=== PATIENT | female | born 1935 | race Caucasian/White ===

== ENCOUNTER 2020-11-18 17:39 | Inpatient (IN) | payer MEDICARE, OTHER ==
[~2020-11-18] VITALS: Ht 165.1 cm; Wt 57.2 kg
[~2020-11-18 17:39] MED LIST: ANASTROZOLE1 MG PO; METOPROLOL TART25 MG PO; NOVOLOG MI100 UNIT/1; WARFARIN SODIUM3 MG PO
[2020-11-18 18:23] LABS: BASOPHILS # (AUTO) 0.1 (0.0-0.1); BASOPHILS % 0.4 % (0.0-1.0); EOSINOPHILS # (AUTO) 0.3 (0.0-0.4); EOSINOPHILS % 2.5 % (0.0-6.0); HEMATOCRIT 29.6 % (34.2-44.1); LYMPHOCYTES # (AUTO) 1.9 (1.0-3.2); LYMPHOCYTES % 16.8 % (18.0-39.1); MEAN CORPUSCULAR HEMOGLOBIN 29.4 pg (28-32); MEAN CORPUSCULAR HGB CONC 30.4 g/dL (31-35); MEAN CORPUSCULAR VOLUME 96.7 fL (81-99); MONOCYTES # (AUTO) 0.7 (0.2-0.8); MONOCYTES % 6.1 % (4.4-11.3); NEUTROPHILS # (AUTO) 8.4 (2.1-6.9); NEUTROPHILS % 73.7 % (38.7-80.0); PLATELET COUNT 286 x10e3/uL (140-360); RED BLOOD COUNT 3.06 x10e6/uL (3.6-5.1); RED CELL DISTRIBUTION WIDTH 14.4 % (11.7-14.4)
[2020-11-18 18:35] LABS: INR 2.16; PROTHROMBIN TIME 25.8 seconds (11.9-14.5)
[2020-11-18 18:36] LABS: PARTIAL THROMBOPLASTIN TIME 39.4 seconds (23.8-35.5)
[2020-11-18 18:44] LABS: ALBUMIN 2.6 g/dL (3.5-5.0); ALBUMIN/GLOBULIN RATIO 0.7 (0.8-2.0); ANION GAP 11.9 mmol/L (8-16); CALCIUM 8.1 mg/dL (8.4-10.2); CREATININE, SERUM 0.97 mg/dL (0.57-1.11); POTASSIUM 4.9 mmol/L (3.5-5.1)
[2020-11-18] MEDS ORDERED: SODIUM CHLORIDE 0.9% 1000ML 1,000 ML IV SCH (19:30)
[2020-11-18] MEDS ORDERED: ONDANSETRON HCL INJ 2MG/ML 2ML 2 MG/ML VIAL IV PRN ×2 (19:30→23:45)
[2020-11-18] MEDS ORDERED: DEXTROSE 50% SYRINGE 50 ML IV PRN (19:30)
[2020-11-18] MEDS ORDERED: MORPHINE SULFATE INJ 4 MG/ML INJ 1ML IV PRN (19:30)
[2020-11-18 20:13] VITALS: BP 127/56
[2020-11-18 21:38] LABS: COLOR,URINE YELLOW (YELLOW)
[2020-11-18 21:39] LABS: CLARITY,URINE CLEAR (CLEAR); KETONES,URINE NEGATIVE (NEGATIVE); LEUKOCYTE ESTERASE ,URINE NEGATIVE (NEGATIVE); NITRITE,URINE NEGATIVE (NEGATIVE); PROTEIN,URINE DIPSTICK NEGATIVE (NEGATIVE); URINE UROBILINOGEN 0.2 mg/dL (0.2 - 1)
[2020-11-18] MEDS: INSULIN REGULAR, HUMAN 100 UNIT/1 ML 3ML VIAL SQ SCH (21:40)
[2020-11-18 21:49] LABS: AMORPHOUS SEDIMENT,URINE FEW (FEW); BACTERIA,URINE MODERATE /HPF; EPITHELIAL CELLS,URINE FEW /LPF; HYALINE CASTS 0-1 (0-1)
[2020-11-18] MEDS ORDERED: ROPINIROLE HCL1 MG PO (23:03)
[2020-11-18] MEDS ORDERED: CRESTOR5 MG (23:03)
[2020-11-18] MEDS ORDERED: vit d (23:03)
[2020-11-18] MEDS ORDERED: FUROSEMIDE40 MG PO (23:03)
[2020-11-18] MEDS ORDERED: ALENDRONATE SOD70 MG (23:03)
[2020-11-18 23:11] VITALS: BP 127/56
[2020-11-18] MEDS ORDERED: TEMAZEPAM 7.5 MG CAP PO PRN (23:45)
[2020-11-18] MEDS ORDERED: METOPROLOL TARTRATE INJ 1 MG/ML VIAL IV PRN (23:45)
[2020-11-18] MEDS ORDERED: ACETAMINOPHEN 325 MG TAB PO PRN (23:45)
[2020-11-18 23:59] VITALS: BP 127/56
[2020-11-19] VITALS (7 sets, daily range): BP systolic 99–136; BP diastolic 41–52
[2020-11-19 05:50] LABS: BASOPHILS % 0.2 % (0.0-1.0); EOSINOPHILS # (AUTO) 0.2 (0.0-0.4); EOSINOPHILS % 2.6 % (0.0-6.0); HEMATOCRIT 25.2 % (34.2-44.1); LYMPHOCYTES # (AUTO) 1.6 (1.0-3.2); LYMPHOCYTES % 20.3 % (18.0-39.1); MEAN CORPUSCULAR HEMOGLOBIN 29.1 pg (28-32); MONOCYTES # (AUTO) 0.6 (0.2-0.8); MONOCYTES % 7.1 % (4.4-11.3); NEUTROPHILS # (AUTO) 5.6 (2.1-6.9); NEUTROPHILS % 69.4 % (38.7-80.0); PLATELET COUNT 176 x10e3/uL (140-360); RED BLOOD COUNT 2.68 x10e6/uL (3.6-5.1); RED CELL DISTRIBUTION WIDTH 14.5 % (11.7-14.4)
[2020-11-19 06:08] LABS: HEMOGLOBIN 7.8 g/dL (12.0-16.0)
[2020-11-19 06:40] LABS: ALANINE AMINOTRANSFERASE 22 IU/L (0-55); ALBUMIN 2.1 g/dL (3.5-5.0); ALBUMIN/GLOBULIN RATIO 0.7 (0.8-2.0); ALKALINE PHOSPHATASE 171 IU/L (40-150); ANION GAP 11.4 mmol/L (8-16); BLOOD UREA NITROGEN 46 mg/dL (7-26); BUN/CREATININE RATIO 55 (6-25); CALCIUM 7.6 mg/dL (8.4-10.2); CARBON DIOXIDE 22 mmol/L (22-29); CHLORIDE 114 mmol/L (98-107); CREATININE, SERUM 0.84 mg/dL (0.57-1.11); EST GLOMERULAR FILTRATION RATE > 60 ML/MIN (60-); GLUCOSE 116 mg/dL (74-118); POTASSIUM 4.4 mmol/L (3.5-5.1); SODIUM 143 mmol/L (136-145)
[2020-11-19 06:59] LABS: CHOL/HDL RATIO 2.7 (3.0-3.6); MAGNESIUM 2.1 MG/DL (1.3-2.1); PHOSPHORUS 2.9 MG/DL (2.3-4.7)
[2020-11-19 07:19] LABS: FERRITIN 256.46 ng/mL (4.63-204.00); THYROID STIMULATING HORMONE 2.906 uIU/mL (0.350-4.940)
[2020-11-19] MEDS: INSULIN REGULAR, HUMAN 100 UNIT/1 ML 3ML VIAL SQ SCH ×5 (07:30→21:46)
[2020-11-19] MEDS: OYST-CAL-D 500MG TABLET PO SCH ×2 (09:00→15:24)
[2020-11-19] MEDS: ZINC SULFATE 220 MG CAP PO SCH ×2 (09:00→15:24)
[2020-11-19] MEDS: ASCORBIC ACID 500 MG TAB PO SCH ×2 (09:00→15:24)
[2020-11-19] MEDS: MAGNESIUM OXIDE 400 MG TAB PO SCH ×2 (09:00→15:24)
[2020-11-19] MEDS: DOCUSATE SODIUM 100 MG CAP PO SCH ×2 (09:00→15:24)
[2020-11-19] MEDS: FAMOTIDINE 20 MG/2 ML VIAL IV SCH ×2 (09:39→15:24)
[2020-11-19] MEDS ORDERED: INFLUENZA VIRUS VAC SPLIT INJ 0.5 ML SYR IM SCH (10:00)
[2020-11-19] MEDS ORDERED: PNEUMOCOCCAL VACCINE POLYVALENT 23 MCG/0.5 ML VIAL IM SCH (10:00)
[2020-11-19] MEDS ORDERED: ARIMIDEX1 MG PO (10:40)
[2020-11-19] MEDS ORDERED: HEPARIN SOD/SOD CHLORIDE 1,000 ML ONE (11:22)
[2020-11-19] MEDS ORDERED: FENTANYL CITRATE/PF 100MCG/2 ML INJ ONE ×2 (12:16→13:44)
[2020-11-19] MEDS ORDERED: TEMAZEPAM 15 MG CAP PO PRN (12:45)
[2020-11-19] MEDS ORDERED: ONDANSETRON HCL INJ 2MG/ML 2ML 2 MG/ML VIAL IV PRN (13:15)
[2020-11-19] MEDS ORDERED: HYDROCODONE/APAP 7.5MG-325MG 1 EA TAB PO PRN (13:15)
[2020-11-19] MEDS ORDERED: DOCUSATE SODIUM 100 MG CAP PO PRN (13:15)
[2020-11-19] MEDS ORDERED: DIPHENHYDRAMINE HCL INJ 50 MG/ML VIAL IV PRN (13:15)
[2020-11-19] MEDS ORDERED: KETOROLAC TROMETHAMINE 30 MG/ML VIAL IV PRN (13:15)
[2020-11-19] MEDS ORDERED: ACETAMINOPHEN 650 MG SUPP PR PRN (13:15)
[2020-11-19] MEDS ORDERED: ACETAMINOPHEN 1000 MG/100 ML 100 ML IV ONE (13:44)
[2020-11-19] MEDS: CEFAZOLIN SOD 1 GM/NS 50ML 50 ML IV SCH ×2 (14:00→21:29)
[2020-11-19] MEDS ORDERED: ACETAMINOPHEN 1000 MG/100 ML IV PRN (14:00)
[2020-11-19] MEDS: SODIUM CHLORIDE 0.9% 1000ML 1,000 ML IV SCH ×2 (15:23→23:15)
[2020-11-19] MEDS: MULTIVITAMINS/MINERALS TAB PO SCH (15:23)
[2020-11-19] MEDS: IRON SUCROSE 100 MG in SODIUM CHLORIDE 0.9% 100 ML 100 ML IV SCH (15:24)
[2020-11-19] MEDS: CELECOXIB 100 MG CAP PO SCH (15:24)
[2020-11-19] MEDS ORDERED: SEVOFLURANE INHAL SOLN 250 ML PEN BTL ONE (18:07)
[2020-11-19] MEDS ORDERED: PROPOFOL IV EMULSION 10 MG/ML 20 ML VIAL ONE (18:07)
[2020-11-19] MEDS ORDERED: LIDOCAINE HCL 2% LOCAL INJ 5 ML SDV VIAL INJ ONE (18:07)
[2020-11-19] MEDS ORDERED: LIDOCAINE HCL 2% JELLY 5 ML TUBE ONE (18:07)
[2020-11-20] VITALS (7 sets, daily range): BP systolic 100–115; BP diastolic 42–53
[2020-11-20 05:30] LABS: BASOPHILS % 0.3 % (0.0-1.0); EOSINOPHILS # (AUTO) 0.3 (0.0-0.4); EOSINOPHILS % 3.5 % (0.0-6.0); LYMPHOCYTES # (AUTO) 1.2 (1.0-3.2); MEAN CORPUSCULAR HEMOGLOBIN 29.8 pg (28-32); MEAN CORPUSCULAR VOLUME 96.2 fL (81-99); MONOCYTES # (AUTO) 0.6 (0.2-0.8); MONOCYTES % 7.6 % (4.4-11.3); NEUTROPHILS # (AUTO) 5.7 (2.1-6.9); NEUTROPHILS % 73.3 % (38.7-80.0); PLATELET COUNT 195 x10e3/uL (140-360); RED BLOOD COUNT 2.35 x10e6/uL (3.6-5.1); RED CELL DISTRIBUTION WIDTH 14.8 % (11.7-14.4)
[2020-11-20 05:54] LABS: ANION GAP 10.2 mmol/L (8-16); BLOOD UREA NITROGEN 37 mg/dL (7-26); BUN/CREATININE RATIO 42 (6-25); CARBON DIOXIDE 22 mmol/L (22-29); CHLORIDE 116 mmol/L (98-107); CREATININE, SERUM 0.88 mg/dL (0.57-1.11); EST GLOMERULAR FILTRATION RATE > 60 ML/MIN (60-); POTASSIUM 4.2 mmol/L (3.5-5.1); SODIUM 144 mmol/L (136-145)
[2020-11-20 06:00] LABS: GLUCOSE 54 mg/dL (74-118)
[2020-11-20] MEDS: CEFAZOLIN SOD 1 GM/NS 50ML 50 ML IV SCH (06:00)
[2020-11-20 06:02] LABS: HEMATOCRIT 22.6 % (34.2-44.1)
[2020-11-20] MEDS: INSULIN REGULAR, HUMAN 100 UNIT/1 ML 3ML VIAL SQ SCH ×5 (07:29→21:00)
[2020-11-20] MEDS: FAMOTIDINE 20 MG/2 ML VIAL IV SCH ×2 (08:37→16:54)
[2020-11-20] MEDS: MAGNESIUM OXIDE 400 MG TAB PO SCH ×2 (08:37→16:54)
[2020-11-20] MEDS: ZINC SULFATE 220 MG CAP PO SCH ×2 (08:37→16:55)
[2020-11-20] MEDS: DOCUSATE SODIUM 100 MG CAP PO SCH ×2 (08:37→16:54)
[2020-11-20] MEDS: OYST-CAL-D 500MG TABLET PO SCH ×2 (08:37→16:54)
[2020-11-20] MEDS: ASCORBIC ACID 500 MG TAB PO SCH ×2 (08:37→16:55)
[2020-11-20] MEDS: ANASTROZOLE 1 MG TAB PO SCH (08:37)
[2020-11-20] MEDS: MULTIVITAMINS/MINERALS TAB PO SCH (08:37)
[2020-11-20] MEDS: CELECOXIB 100 MG CAP PO SCH ×2 (08:37→16:54)
[2020-11-20] MEDS: BALSAM PERU/CASTOR OIL 60 GM OINT...G. TP SCH (11:00)
[2020-11-20] MEDS ORDERED: OYST-CAL-D 500MG TABLET PO SCH (11:00)
[2020-11-20] MEDS ORDERED: MORPHINE SULFATE INJ 2 MG/ML SYR IV PRN (11:00)
[2020-11-20] MEDS ORDERED: BISACODYL 5 MG TAB EC PO ONE (11:30)
[2020-11-20] MEDS ORDERED: MORPHINE SULFATE INJ 4 MG/ML INJ 1ML IV PRN (11:30)
[2020-11-20] MEDS ORDERED: PNEUMOCOCCAL VACCINE POLYVALENT 23 MCG/0.5 ML VIAL IM ONE (12:00)
[2020-11-20] MEDS ORDERED: INFLUENZA VIRUS VAC SPLIT INJ 0.5 ML SYR IM ONE (12:00)
[2020-11-20] MEDS: IRON SUCROSE 100 MG in SODIUM CHLORIDE 0.9% 100 ML 100 ML IV SCH (15:00)
[2020-11-20] MEDS: POLYETHYLENE GLYCOL 3350 17 GM PACK PO PRN (16:56)
[2020-11-21] VITALS (8 sets, daily range): BP systolic 99–123; BP diastolic 42–65
[2020-11-21 05:54] LABS: BASOPHILS % 0.4 % (0.0-1.0); EOSINOPHILS # (AUTO) 0.5 (0.0-0.4); HEMATOCRIT 22.7 % (34.2-44.1); LYMPHOCYTES # (AUTO) 1.4 (1.0-3.2); LYMPHOCYTES % 18.1 % (18.0-39.1); MEAN CORPUSCULAR HEMOGLOBIN 29.4 pg (28-32); MEAN CORPUSCULAR HGB CONC 30.8 g/dL (31-35); MEAN CORPUSCULAR VOLUME 95.4 fL (81-99); MONOCYTES # (AUTO) 0.5 (0.2-0.8); NEUTROPHILS # (AUTO) 5.2 (2.1-6.9); NEUTROPHILS % 69.2 % (38.7-80.0); PLATELET COUNT 192 x10e3/uL (140-360); RED BLOOD COUNT 2.38 x10e6/uL (3.6-5.1)
[2020-11-21 06:13] LABS: ANION GAP 10.6 mmol/L (8-16); BLOOD UREA NITROGEN 34 mg/dL (7-26); BUN/CREATININE RATIO 43 (6-25); CALCIUM 7.2 mg/dL (8.4-10.2); CARBON DIOXIDE 22 mmol/L (22-29); CHLORIDE 116 mmol/L (98-107); CREATININE, SERUM 0.79 mg/dL (0.57-1.11); EST GLOMERULAR FILTRATION RATE > 60 ML/MIN (60-); GLUCOSE 70 mg/dL (74-118); POTASSIUM 4.6 mmol/L (3.5-5.1); SODIUM 144 mmol/L (136-145)
[2020-11-21] MEDS: INSULIN REGULAR, HUMAN 100 UNIT/1 ML 3ML VIAL SQ SCH ×4 (07:30→21:15)
[2020-11-21] MEDS: CELECOXIB 100 MG CAP PO SCH ×2 (09:24→17:35)
[2020-11-21] MEDS: DOCUSATE SODIUM 100 MG CAP PO SCH ×2 (09:24→17:35)
[2020-11-21] MEDS: POLYETHYLENE GLYCOL 3350 17 GM PACK PO PRN (09:24)
[2020-11-21] MEDS: ANASTROZOLE 1 MG TAB PO SCH (09:24)
[2020-11-21] MEDS: MAGNESIUM OXIDE 400 MG TAB PO SCH ×2 (09:24→17:35)
[2020-11-21] MEDS: FAMOTIDINE 20 MG TAB PO SCH ×2 (09:24→21:15)
[2020-11-21] MEDS: ASCORBIC ACID 500 MG TAB PO SCH ×2 (09:24→17:35)
[2020-11-21] MEDS: BALSAM PERU/CASTOR OIL 60 GM OINT...G. TP SCH (09:24)
[2020-11-21] MEDS: ZINC SULFATE 220 MG CAP PO SCH ×2 (09:24→17:35)
[2020-11-21] MEDS: OYST-CAL-D 500MG TABLET PO SCH ×2 (09:24→17:35)
[2020-11-21] MEDS: MULTIVITAMINS/MINERALS TAB PO SCH (09:24)
[2020-11-21] MEDS ORDERED: SODIUM CHLORIDE 0.9% 250ML 250 ML IV ONE ×2 (09:30→11:00)
[2020-11-21] MEDS ORDERED: TYLENOL # 31 EA PO (09:32)
[2020-11-21] MEDS ORDERED: ONDANSETRON HCL 4 MG ORAL DISINTEGRATING TAB PO PRN (10:30)
[2020-11-21] MEDS: HYDROCODONE/APAP 5MG-325MG TAB PO PRN (14:00)
[2020-11-21] MEDS: IRON SUCROSE 100 MG in SODIUM CHLORIDE 0.9% 100 ML 100 ML IV SCH (15:41)
[2020-11-21] MEDS ORDERED: SODIUM CHLORIDE 0.9% 250ML 250 ML ONE (18:08)
[2020-11-22] VITALS (10 sets, daily range): BP systolic 118–134; BP diastolic 58–72
[2020-11-22 05:24] LABS: ANION GAP 12.2 mmol/L (8-16); CALCIUM 7.5 mg/dL (8.4-10.2); CREATININE, SERUM 0.91 mg/dL (0.57-1.11); POTASSIUM 5.2 mmol/L (3.5-5.1)
[2020-11-22 05:56] LABS: BASOPHILS % 0.5 % (0.0-1.0); EOSINOPHILS # (AUTO) 0.6 (0.0-0.4); EOSINOPHILS % 6.8 % (0.0-6.0); HEMOGLOBIN 9.2 g/dL (12.0-16.0); LYMPHOCYTES # (AUTO) 1.5 (1.0-3.2); LYMPHOCYTES % 17.3 % (18.0-39.1); MEAN CORPUSCULAR HEMOGLOBIN 29.1 pg (28-32); MEAN CORPUSCULAR HGB CONC 31.7 g/dL (31-35); MEAN CORPUSCULAR VOLUME 91.8 fL (81-99); MONOCYTES # (AUTO) 0.6 (0.2-0.8); MONOCYTES % 7.6 % (4.4-11.3); NEUTROPHILS # (AUTO) 5.6 (2.1-6.9); NEUTROPHILS % 67.2 % (38.7-80.0); PLATELET COUNT 187 x10e3/uL (140-360); RED BLOOD COUNT 3.16 x10e6/uL (3.6-5.1); RED CELL DISTRIBUTION WIDTH 16.1 % (11.7-14.4)
[2020-11-22] MEDS: INSULIN REGULAR, HUMAN 100 UNIT/1 ML 3ML VIAL SQ SCH ×4 (07:30→21:00)
[2020-11-22] MEDS: DOCUSATE SODIUM 100 MG CAP PO SCH ×2 (10:00→17:00)
[2020-11-22] MEDS: OYST-CAL-D 500MG TABLET PO SCH ×2 (10:00→17:00)
[2020-11-22] MEDS: ANASTROZOLE 1 MG TAB PO SCH (10:00)
[2020-11-22] MEDS: ASCORBIC ACID 500 MG TAB PO SCH ×2 (10:00→17:00)
[2020-11-22] MEDS: FAMOTIDINE 20 MG TAB PO SCH ×2 (10:00→22:51)
[2020-11-22] MEDS: CELECOXIB 100 MG CAP PO SCH ×2 (10:00→17:00)
[2020-11-22] MEDS: MULTIVITAMINS/MINERALS TAB PO SCH (10:00)
[2020-11-22] MEDS: ZINC SULFATE 220 MG CAP PO SCH (10:00)
[2020-11-22] MEDS: MAGNESIUM OXIDE 400 MG TAB PO SCH (10:00)
[2020-11-22] MEDS: IRON SUCROSE 100 MG in SODIUM CHLORIDE 0.9% 100 ML 100 ML IV SCH (14:00)
[2020-11-22] MEDS ORDERED: BALSAM PERU/CASTOR OIL 60 GM OINT...G. TP SCH (21:00)
[2020-11-23] MEDS: HYDROCODONE/APAP 5MG-325MG TAB PO PRN (00:58)
[2020-11-23 04:27] VITALS: BP 111/57
[2020-11-23 06:32] LABS: BASOPHILS % 0.4 % (0.0-1.0); EOSINOPHILS # (AUTO) 0.5 (0.0-0.4); EOSINOPHILS % 5.9 % (0.0-6.0); HEMATOCRIT 30.3 % (34.2-44.1); HEMOGLOBIN 9.4 g/dL (12.0-16.0); LYMPHOCYTES # (AUTO) 1.5 (1.0-3.2); LYMPHOCYTES % 18.5 % (18.0-39.1); MEAN CORPUSCULAR HEMOGLOBIN 29.2 pg (28-32); MEAN CORPUSCULAR VOLUME 94.1 fL (81-99); MONOCYTES # (AUTO) 0.7 (0.2-0.8); MONOCYTES % 8.8 % (4.4-11.3); NEUTROPHILS # (AUTO) 5.2 (2.1-6.9); NEUTROPHILS % 65.9 % (38.7-80.0); PLATELET COUNT 181 x10e3/uL (140-360); RED BLOOD COUNT 3.22 x10e6/uL (3.6-5.1); RED CELL DISTRIBUTION WIDTH 16.2 % (11.7-14.4)
[2020-11-23 06:41] LABS: INR 1.1; PROTHROMBIN TIME 14.9 seconds (11.9-14.5)
[2020-11-23 06:58] LABS: ANION GAP 9.1 mmol/L (8-16); BLOOD UREA NITROGEN 33 mg/dL (7-26); BUN/CREATININE RATIO 40 (6-25); CALCIUM 7.8 mg/dL (8.4-10.2); CARBON DIOXIDE 24 mmol/L (22-29); CHLORIDE 112 mmol/L (98-107); CREATININE, SERUM 0.82 mg/dL (0.57-1.11); EST GLOMERULAR FILTRATION RATE > 60 ML/MIN (60-); GLUCOSE 86 mg/dL (74-118); POTASSIUM 5.1 mmol/L (3.5-5.1); SODIUM 140 mmol/L (136-145)
[2020-11-23] MEDS: INSULIN REGULAR, HUMAN 100 UNIT/1 ML 3ML VIAL SQ SCH ×3 (07:30→16:30)
[2020-11-23 08:10] VITALS: BP 108/55
[2020-11-23 08:35] VITALS: BP 108/55
[2020-11-23] MEDS: DOCUSATE SODIUM 100 MG CAP PO SCH ×2 (09:00→17:00)
[2020-11-23] MEDS: ANASTROZOLE 1 MG TAB PO SCH (09:00)
[2020-11-23] MEDS: MULTIVITAMINS/MINERALS TAB PO SCH (09:00)
[2020-11-23] MEDS: FAMOTIDINE 20 MG TAB PO SCH (09:00)
[2020-11-23] MEDS: ASCORBIC ACID 500 MG TAB PO SCH ×2 (09:00→17:00)
[2020-11-23] MEDS: OYST-CAL-D 500MG TABLET PO SCH ×2 (09:00→17:00)
[2020-11-23] MEDS: CELECOXIB 100 MG CAP PO SCH ×2 (09:00→17:00)
[2020-11-23] MEDS ORDERED: Calcium Carbonate PO (13:33)
[2020-11-23] MEDS ORDERED: ASCORBIC ACID500 MG PO (13:33)
[2020-11-23] MEDS ORDERED: Multivitamins/Minerals PO (13:33)
[2020-11-23] MEDS: IRON SUCROSE 100 MG in SODIUM CHLORIDE 0.9% 100 ML 100 ML IV SCH (13:59)
[2020-11-23 16:00] VITALS: BP 117/46
== END 2020-11-23 18:20 | disposition home or self-care (01) | DRG 481 ==
LOC: ER 18:32 → ERHOLD 19:32 → MED/SURG 22:27
PROVIDERS: ADMIT Internal Medicine; ATTEND Internal Medicine
PROC: 0QS604Z Reposition Right Upper Femur with Internal Fixation Device, Open Approach (ICD-10-PCS; principal; 2020-11-20)
PROC: 30233N1 Transfusion of Nonautologous Red Blood Cells into Peripheral Vein, Percutaneous Approach (ICD-10-PCS; 2020-11-21)
DX: S72.141A Displaced intertrochanteric fracture of right femur, initial encounter for closed fracture (principal); D62 Acute posthemorrhagic anemia; E86.0 Dehydration; E11.9 Type 2 diabetes mellitus without complications; D50.9 Iron deficiency anemia, unspecified; I10 Essential (primary) hypertension; Z86.73 Personal history of transient ischemic attack (TIA), and cerebral infarction without residual deficits; E78.5 Hyperlipidemia, unspecified; W19.XXXA Unspecified fall, initial encounter; M17.11 Unilateral primary osteoarthritis, right knee; Z74.09 Other reduced mobility; Z20.822 Contact with and (suspected) exposure to COVID-19
CPT/HCPCS: 36415; 51700; 76000; 80048; 80053; 80061; 81001; 82607; 82728; 82746; 82948; 83036; 83540; 83735; 84100; 84132; 84443; 84466; 85025; 85045; 85610; 85730; 86850; 86900; 86920; 90732; 93005; 93971; 96372; 97139; 99251; 99284; C1713; J0690; J1756; J1817; J2001; J3010; J7030; J7050; J7799; P9016; U0002

== ENCOUNTER 2021-01-01 17:20 | Inpatient (IN) | payer MEDICARE ==
[~2021-01-01] VITALS: Ht 317.5 cm; Wt 57.2 kg
[~2021-01-01 17:20] MED LIST changes: +ALENDRONATE SOD70 MG; +ARIMIDEX1 MG PO; +ASCORBIC ACID500 MG PO; +CRESTOR5 MG; +Calcium Carbonate PO; +FUROSEMIDE40 MG PO; +Multivitamins/Minerals PO; +ROPINIROLE HCL1 MG PO; +TYLENOL # 31 EA PO; +vit d
[2021-01-01] MEDS ORDERED: ALBUTEROL/IPRATROPIUM 3 ML NEB NEB ONE (17:30)
[2021-01-01] MEDS ORDERED: METHYLPREDNISOLONE SOD SUCC 125 MG/2ML VIAL IV ONE (17:30)
[2021-01-01 18:11] LABS: BASOPHILS # (AUTO) 0.1 (0.0-0.1); BASOPHILS % 0.4 % (0.0-1.0); EOSINOPHILS # (AUTO) 0.1 (0.0-0.4); EOSINOPHILS % 0.7 % (0.0-6.0); HEMATOCRIT 33.8 % (34.2-44.1); HEMOGLOBIN 9.9 g/dL (12.0-16.0); LYMPHOCYTES # (AUTO) 1.9 (1.0-3.2); LYMPHOCYTES % 15.4 % (18.0-39.1); MEAN CORPUSCULAR HEMOGLOBIN 29.2 pg (28-32); MEAN CORPUSCULAR HGB CONC 29.3 g/dL (31-35); MEAN CORPUSCULAR VOLUME 99.7 fL (81-99); MONOCYTES # (AUTO) 0.9 (0.2-0.8); NEUTROPHILS # (AUTO) 9.3 (2.1-6.9); NEUTROPHILS % 75.8 % (38.7-80.0); PLATELET COUNT 280 x10e3/uL (140-360); RED BLOOD COUNT 3.39 x10e6/uL (3.6-5.1); RED CELL DISTRIBUTION WIDTH 17.4 % (11.7-14.4)
[2021-01-01 18:24] LABS: PARTIAL THROMBOPLASTIN TIME 93.9 seconds (23.8-35.5)
[2021-01-01 18:26] LABS: INR 13.07; PROTHROMBIN TIME 98.2 seconds (11.9-14.5)
[2021-01-01] MEDS ORDERED: PHYTONADIONE 10 MG/ML AMP SQ ONE (18:30)
[2021-01-01 18:55] LABS: ALBUMIN 2.8 g/dL (3.5-5.0); ALBUMIN/GLOBULIN RATIO 0.9 (0.8-2.0); ANION GAP 15.4 mmol/L (8-16); CALCIUM 8.2 mg/dL (8.4-10.2); CREATININE, SERUM 1.07 mg/dL (0.57-1.11)
[2021-01-01 18:56] LABS: POTASSIUM 5.4 mmol/L (3.5-5.1)
[2021-01-01 19:02] LABS: CREATINE KINASE MB 1.2 ng/mL (0-5.0)
[2021-01-01] MEDS ORDERED: DEXTROSE 50% SYRINGE 50 ML IV PRN (19:15)
[2021-01-01] MEDS ORDERED: FUROSEMIDE INJ 10 MG/ML 4 ML VIAL IV ONE (19:15)
[2021-01-01] MEDS: INSULIN REGULAR, HUMAN 100 UNIT/1 ML 3ML VIAL SQ SCH (21:00)
[2021-01-01 21:15] VITALS: BP 124/49
[2021-01-01] MEDS ORDERED: HYDRALAZINE HCL 20 MG/ML VIAL IV PRN (21:15)
[2021-01-01] MEDS ORDERED: ACETAMINOPHEN 325 MG TAB PO PRN (21:15)
[2021-01-01] MEDS ORDERED: POLYETHYLENE GLYCOL 3350 17 GM PACK PO PRN (21:15)
[2021-01-01] MEDS ORDERED: ONDANSETRON HCL INJ 2MG/ML 2ML 2 MG/ML VIAL IV PRN (21:15)
[2021-01-01 21:20] VITALS: BP 108/60
[2021-01-01] MEDS: ROPINIROLE HCL 1 MG TAB PO SCH (21:50)
[2021-01-01] MEDS: DOCUSATE SODIUM 100 MG CAP PO SCH (21:50)
[2021-01-01] MEDS ORDERED: DECARA1250 MCG (22:43)
[2021-01-01] MEDS ORDERED: PROTONIX20 MG PO (22:43)
[2021-01-01] MEDS ORDERED: CLONAZEPAM0.5 MG PO (22:43)
[2021-01-02] VITALS (7 sets, daily range): BP systolic 96–125; BP diastolic 43–68
[2021-01-02] MEDS ORDERED: SODIUM CHLORIDE 0.9% 250ML 500 ML ONE (00:59)
[2021-01-02 05:44] LABS: BASOPHILS % 0.2 % (0.0-1.0); HEMATOCRIT 28.4 % (34.2-44.1); LYMPHOCYTES # (AUTO) 0.4 (1.0-3.2); LYMPHOCYTES % 4.2 % (18.0-39.1); MEAN CORPUSCULAR HEMOGLOBIN 28.7 pg (28-32); MEAN CORPUSCULAR HGB CONC 28.2 g/dL (31-35); MEAN CORPUSCULAR VOLUME 101.8 fL (81-99); MONOCYTES # (AUTO) 0.1 (0.2-0.8); MONOCYTES % 0.8 % (4.4-11.3); NEUTROPHILS # (AUTO) 8.8 (2.1-6.9); NEUTROPHILS % 93.8 % (38.7-80.0); PLATELET COUNT 221 x10e3/uL (140-360); RED BLOOD COUNT 2.79 x10e6/uL (3.6-5.1); RED CELL DISTRIBUTION WIDTH 16.8 % (11.7-14.4)
[2021-01-02 06:16] LABS: ALBUMIN 2.8 g/dL (3.5-5.0); ALBUMIN/GLOBULIN RATIO 0.9 (0.8-2.0); ANION GAP 13.8 mmol/L (8-16); CALCIUM 8.1 mg/dL (8.4-10.2); CREATININE, SERUM 1.16 mg/dL (0.57-1.11); POTASSIUM 5.8 mmol/L (3.5-5.1)
[2021-01-02 06:21] LABS: CREATINE KINASE MB 1.3 ng/mL (0-5.0)
[2021-01-02 06:35] LABS: MAGNESIUM 2.4 MG/DL (1.3-2.1); PHOSPHORUS 5.6 MG/DL (2.3-4.7)
[2021-01-02] MEDS: INSULIN REGULAR, HUMAN 100 UNIT/1 ML 3ML VIAL SQ SCH ×4 (07:30→21:00)
[2021-01-02 07:32] LABS: BAND NEUTROPHILS % (MANUAL) 1 %; LYMPHOCYTES % (MANUAL) 3 % (19-48); NEUTROPHILS % (MANUAL) 96 % (40-74)
[2021-01-02 07:33] LABS: ANISOCYTOSIS SLIGHT; HYPOCHROMASIA SLIGHT; PLATELET ESTIMATE ADEQUATE; PLATELET MORPHOLOGY COMMENT NORMAL; POLYCHROMASIA FEW; RBC MORPHOLOGY COMMENT ABNORMAL
[2021-01-02] MEDS ORDERED: ACETAMINOPHEN/CODEINE 300MG - 30MG TAB PO PRN (08:00)
[2021-01-02] MEDS ORDERED: PANTOPRAZOLE SOD 40 MG TABEC PO SCH (08:30)
[2021-01-02] MEDS: ANASTROZOLE 1 MG TAB PO SCH (09:00)
[2021-01-02] MEDS ORDERED: FAMOTIDINE 20 MG TAB PO SCH (09:00)
[2021-01-02] MEDS: METOPROLOL TARTRATE 25 MG TAB PO SCH (09:00)
[2021-01-02] MEDS ORDERED: FUROSEMIDE INJ 10 MG/ML 4 ML VIAL IV SCH (09:00)
[2021-01-02] MEDS ORDERED: CEFTRIAXONE SOD 1 GM/50 ML BAG IV SCH (09:15)
[2021-01-02] MEDS ORDERED: iron PO (09:21)
[2021-01-02] MEDS: DOCUSATE SODIUM 100 MG CAP PO SCH ×2 (09:31→16:51)
[2021-01-02] MEDS: ASCORBIC ACID 500 MG TAB PO SCH ×2 (09:32→16:51)
[2021-01-02] MEDS ORDERED: SODIUM CHLORIDE 0.9% 250ML 250 ML ONE (09:54)
[2021-01-02] MEDS: CEFTRIAXONE SOD 1 GM in SODIUM CHLORIDE 0.9% 50ML 50 ML IV SCH (10:00)
[2021-01-02 10:18] LABS: INR 1.62; PROTHROMBIN TIME 19.9 seconds (11.9-14.5)
[2021-01-02] MEDS ORDERED: SOD POLYSTYRENE SULFONATE SUSP 15 GM/60 ML BTL PO ONE ×2 (13:30→20:00)
[2021-01-02 15:52] LABS: CREATINE KINASE MB 1.5 ng/mL (0-5.0)
[2021-01-02] MEDS: FUROSEMIDE INJ 10 MG/ML 4 ML VIAL IV SCH (16:51)
[2021-01-02] MEDS: SIMVASTATIN 20 MG TAB PO SCH (20:31)
[2021-01-02] MEDS: ROPINIROLE HCL 1 MG TAB PO SCH (20:31)
[2021-01-02] MEDS: CLONAZEPAM 0.5 MG TAB PO PRN (20:36)
[2021-01-03] VITALS (9 sets, daily range): BP systolic 87–117; BP diastolic 32–76
[2021-01-03] MEDS: INSULIN REGULAR, HUMAN 100 UNIT/1 ML 3ML VIAL SQ SCH ×4 (07:30→20:15)
[2021-01-03 07:52] LABS: BASOPHILS % 0.1 % (0.0-1.0); EOSINOPHILS % 0.2 % (0.0-6.0); HEMATOCRIT 27.9 % (34.2-44.1); HEMOGLOBIN 7.8 g/dL (12.0-16.0); LYMPHOCYTES # (AUTO) 1.7 (1.0-3.2); LYMPHOCYTES % 15.4 % (18.0-39.1); MEAN CORPUSCULAR HEMOGLOBIN 29.1 pg (28-32); MEAN CORPUSCULAR VOLUME 104.1 fL (81-99); MONOCYTES # (AUTO) 1.1 (0.2-0.8); NEUTROPHILS # (AUTO) 7.9 (2.1-6.9); NEUTROPHILS % 72.7 % (38.7-80.0); PLATELET COUNT 209 x10e3/uL (140-360); RED BLOOD COUNT 2.68 x10e6/uL (3.6-5.1)
[2021-01-03] MEDS: FUROSEMIDE INJ 10 MG/ML 4 ML VIAL IV SCH (08:00)
[2021-01-03 08:27] LABS: ALBUMIN 2.8 g/dL (3.5-5.0); ANION GAP 14.5 mmol/L (8-16); CALCIUM 7.3 mg/dL (8.4-10.2); CREATININE, SERUM 1.45 mg/dL (0.57-1.11); MAGNESIUM 2.5 MG/DL (1.3-2.1); POTASSIUM 5.5 mmol/L (3.5-5.1)
[2021-01-03] MEDS: COLLAGENASE 5 GM TUBE TOP SCH (09:00)
[2021-01-03] MEDS: DOCUSATE SODIUM 100 MG CAP PO SCH ×2 (09:00→16:31)
[2021-01-03] MEDS: METOPROLOL TARTRATE 25 MG TAB PO SCH (09:00)
[2021-01-03] MEDS ORDERED: ANASTROZOLE 1 MG TAB PO SCH (09:00)
[2021-01-03] MEDS: ANASTROZOLE 1 MG TAB PO SCH (09:00)
[2021-01-03] MEDS: ASCORBIC ACID 500 MG TAB PO SCH ×2 (09:00→16:31)
[2021-01-03] MEDS: LORATADINE 10 MG TAB PO SCH (09:00)
[2021-01-03] MEDS: BALSAM PERU/CASTOR OIL 60 GM OINT...G. TP SCH (09:00)
[2021-01-03 11:07] LABS: CLARITY,URINE CLEAR (CLEAR); COLOR,URINE YELLOW (YELLOW); KETONES,URINE NEGATIVE (NEGATIVE); LEUKOCYTE ESTERASE ,URINE NEGATIVE (NEGATIVE); NITRITE,URINE NEGATIVE (NEGATIVE); PROTEIN,URINE DIPSTICK 1+ (NEGATIVE); URINE UROBILINOGEN 0.2 mg/dL (0.2 - 1)
[2021-01-03 11:22] LABS: BACTERIA,URINE MANY /HPF; EPITHELIAL CELLS,URINE FEW /LPF; RBC,URINE >50 /HPF (0-5)
[2021-01-03 11:45] LABS: BODY FLUID TYPE PLEURAL
[2021-01-03 11:46] LABS: BODY FLUID APPEARANCE CLEAR; BODY FLUID COLOR YELLOW; WBC,BODY FLUID 143 cells/uL
[2021-01-03 11:47] LABS: RBC,BODY FLUID 1000 cells/uL
[2021-01-03] MEDS: CEFTRIAXONE SOD 1 GM in SODIUM CHLORIDE 0.9% 50ML 50 ML IV SCH (12:16)
[2021-01-03] MEDS ORDERED: SODIUM CHLORIDE 0.45% 1,000 ML IV SCH (12:30)
[2021-01-03] MEDS ORDERED: SOD POLYSTYRENE SULFONATE SUSP 15 GM/60 ML BTL PO NR ×2 (12:30→20:00)
[2021-01-03] MEDS: CLONAZEPAM 0.5 MG TAB PO PRN (12:38)
[2021-01-03 12:46] LABS: LYMPHOCYTES,BODY FLUID 21 %; MONO/MACROPHG,BODY FLUID 39 %; NEUTROPHILS,BODY FLUID 40 %
[2021-01-03] MEDS: LORAZEPAM INJ 2 MG/ML VIAL IV PRN (13:03)
[2021-01-03 15:04] LABS: % IRON SATURATION 12 % (15-50); IRON 33 ug/dL (50-170); TOTAL IRON BINDING CAPACITY 267 ug/dL (261-478); TRANSFERRIN 191 mg/dL (180-382)
[2021-01-03] MEDS: PANTOPRAZOLE SOD 40 MG TABEC PO SCH (16:30)
[2021-01-03] MEDS: ROPINIROLE HCL 1 MG TAB PO SCH (20:52)
[2021-01-03] MEDS: SIMVASTATIN 20 MG TAB PO SCH (20:52)
[2021-01-04] VITALS (7 sets, daily range): BP systolic 96–103; BP diastolic 43–52
[2021-01-04] MEDS: INSULIN REGULAR, HUMAN 100 UNIT/1 ML 3ML VIAL SQ SCH ×4 (07:30→21:00)
[2021-01-04] MEDS: PANTOPRAZOLE SOD 40 MG TABEC PO SCH ×2 (07:30→16:30)
[2021-01-04 08:18] LABS: BASOPHILS % 0.2 % (0.0-1.0); EOSINOPHILS % 0.1 % (0.0-6.0); HEMATOCRIT 28.1 % (34.2-44.1); HEMOGLOBIN 7.7 g/dL (12.0-16.0); LYMPHOCYTES % 8.6 % (18.0-39.1); MEAN CORPUSCULAR HEMOGLOBIN 29.2 pg (28-32); MEAN CORPUSCULAR HGB CONC 27.4 g/dL (31-35); MEAN CORPUSCULAR VOLUME 106.4 fL (81-99); MONOCYTES # (AUTO) 0.8 (0.2-0.8); MONOCYTES % 7.2 % (4.4-11.3); NEUTROPHILS # (AUTO) 9.5 (2.1-6.9); NEUTROPHILS % 82.3 % (38.7-80.0); PLATELET COUNT 199 x10e3/uL (140-360); RED BLOOD COUNT 2.64 x10e6/uL (3.6-5.1); RED CELL DISTRIBUTION WIDTH 17.2 % (11.7-14.4)
[2021-01-04 08:34] LABS: INR 2.05; PROTHROMBIN TIME 23.9 seconds (11.9-14.5)
[2021-01-04 08:35] LABS: PARTIAL THROMBOPLASTIN TIME 36.2 seconds (23.8-35.5)
[2021-01-04 08:44] LABS: ALBUMIN 2.8 g/dL (3.5-5.0); ALBUMIN/GLOBULIN RATIO 0.9 (0.8-2.0); ANION GAP 15.4 mmol/L (8-16); CALCIUM 7.3 mg/dL (8.4-10.2); CREATININE, SERUM 1.83 mg/dL (0.57-1.11); POTASSIUM 5.4 mmol/L (3.5-5.1)
[2021-01-04] MEDS: METOPROLOL TARTRATE 25 MG TAB PO SCH (09:00)
[2021-01-04] MEDS: ASCORBIC ACID 500 MG TAB PO SCH ×2 (09:00→17:00)
[2021-01-04] MEDS: LORATADINE 10 MG TAB PO SCH (09:00)
[2021-01-04] MEDS: ANASTROZOLE 1 MG TAB PO SCH (09:00)
[2021-01-04] MEDS: DOCUSATE SODIUM 100 MG CAP PO SCH ×2 (09:00→17:00)
[2021-01-04] MEDS: FUROSEMIDE INJ 10 MG/ML 4 ML VIAL IV SCH ×3 (12:37→19:18)
[2021-01-04] MEDS: CEFTRIAXONE SOD 1 GM in SODIUM CHLORIDE 0.9% 50ML 50 ML IV SCH (12:46)
[2021-01-04] MEDS ORDERED: FUROSEMIDE INJ 10 MG/ML 4 ML VIAL IV ONE (14:00)
[2021-01-04] MEDS ORDERED: ALBUMIN 25% 12.5GM 0.25 GM/ML BTL IV ONE ×2 (14:00)
[2021-01-04] MEDS: BALSAM PERU/CASTOR OIL 60 GM OINT...G. TP SCH (19:15)
[2021-01-04] MEDS: COLLAGENASE 5 GM TUBE TOP SCH (19:15)
[2021-01-04] MEDS: SIMVASTATIN 20 MG TAB PO SCH (21:00)
[2021-01-04] MEDS: ROPINIROLE HCL 1 MG TAB PO SCH (21:00)
[2021-01-04] MEDS: LORAZEPAM INJ 2 MG/ML VIAL IV PRN (23:10)
[2021-01-05] VITALS: BP 91/42
[2021-01-05 00:52] VITALS: BP 102/43
[2021-01-05] MEDS ORDERED: EPINEPHRINE HCL SYRINGE ONE ×2 (05:20→13:04)
[2021-01-05] MEDS: PANTOPRAZOLE SOD 40 MG TABEC PO SCH (07:30)
[2021-01-05] MEDS: INSULIN REGULAR, HUMAN 100 UNIT/1 ML 3ML VIAL SQ SCH (07:30)
[2021-01-05] MEDS: ASCORBIC ACID 500 MG TAB PO SCH (07:31)
[2021-01-05] MEDS: DOCUSATE SODIUM 100 MG CAP PO SCH (07:31)
[2021-01-05] MEDS: FUROSEMIDE INJ 10 MG/ML 4 ML VIAL IV SCH (07:31)
[2021-01-05] MEDS: LORATADINE 10 MG TAB PO SCH (07:31)
[2021-01-05] MEDS: ANASTROZOLE 1 MG TAB PO SCH (07:31)
[2021-01-05] MEDS: METOPROLOL TARTRATE 25 MG TAB PO SCH (07:31)
[2021-01-05] MEDS: COLLAGENASE 5 GM TUBE TOP SCH (07:32)
[2021-01-05] MEDS: BALSAM PERU/CASTOR OIL 60 GM OINT...G. TP SCH (07:32)
[2021-01-05] MEDS ORDERED: SODIUM CHLORIDE FLUSH 10 ML SYR ONE (13:04)
[2021-01-05] MEDS ORDERED: CALCIUM CHLORIDE 10% 1.36 MEQ/ML 10ML SYR IV ONE (13:04)
[2021-01-05] MEDS ORDERED: SODIUM BICARBONATE 8.4% INJ 50 ML SYR ONE (13:04)
== END 2021-01-05 12:37 | disposition expired | DRG 291 ==
LOC: ER 19:23 → ERHOLD 19:24 → MED/SURG 21:21
PROVIDERS: ADMIT Internal Medicine; ATTEND Internal Medicine
PROC: 30233K1 Transfusion of Nonautologous Frozen Plasma into Peripheral Vein, Percutaneous Approach (ICD-10-PCS; 2021-01-02)
PROC: 0W9B3ZZ Drainage of Left Pleural Cavity, Percutaneous Approach (ICD-10-PCS; principal; 2021-01-03)
PROC: 5A1935Z Respiratory Ventilation, Less than 24 Consecutive Hours (ICD-10-PCS; 2021-01-05)
PROC: 0BH18EZ Insertion of Endotracheal Airway into Trachea, Via Natural or Artificial Opening Endoscopic (ICD-10-PCS; 2021-01-05)
PROC: 5A12012 Performance of Cardiac Output, Single, Manual (ICD-10-PCS; 2021-01-05)
DX: I13.0 Hypertensive heart and chronic kidney disease with heart failure and stage 1 through stage 4 chronic kidney disease, or unspecified chronic kidney disease (principal); J96.20 Acute and chronic respiratory failure, unspecified whether with hypoxia or hypercapnia; J69.0 Pneumonitis due to inhalation of food and vomit; I50.33 Acute on chronic diastolic (congestive) heart failure; N17.9 Acute kidney failure, unspecified; E87.1 Hypo-osmolality and hyponatremia; J90 Pleural effusion, not elsewhere classified; D68.32 Hemorrhagic disorder due to extrinsic circulating anticoagulants; E87.0 Hyperosmolality and hypernatremia; I35.0 Nonrheumatic aortic (valve) stenosis; Z20.822 Contact with and (suspected) exposure to COVID-19; T45.515A Adverse effect of anticoagulants, initial encounter; F41.9 Anxiety disorder, unspecified; E87.5 Hyperkalemia; Z85.3 Personal history of malignant neoplasm of breast; E11.22 Type 2 diabetes mellitus with diabetic chronic kidney disease; N18.9 Chronic kidney disease, unspecified; Z79.899 Other long term (current) drug therapy; I46.2 Cardiac arrest due to underlying cardiac condition; Z86.73 Personal history of transient ischemic attack (TIA), and cerebral infarction without residual deficits; L89.152 Pressure ulcer of sacral region, stage 2
CPT/HCPCS: 31500; 32555; 36415; 70450; 71045; 71250; 74230; 74470; 80053; 81001; 82550; 82553; 82607; 82746; 82948; 83540; 83615; 83735; 83880; 84100; 84157; 84466; 84478; 84484; 85025; 85379; 85610; 85730; 86850; 86900; 87070; 87086; 87205; 89051; 92950; 93005; 93306; 94640; 97139; 99251; 99284; J0171; J0696; J1817; J1940; J2060; J2930; J3430; J7050; P9017; U0002